=== PATIENT | female | born 1955 | race Hispanic/Latino ===

== ENCOUNTER 2016-09-19 09:32 | Outpatient (CLI) | payer OTHER ==
--- NOTE | 2016-09-19 12:50 | Mammography Report ---
Bilateral digital screening mammogram with CAD. Comparison studies from July 2013 and June 2012. Findings: The breasts have a fibrofatty appearance. Scattered bilateral calcifications have benign features. A small nodular asymmetry in the left breast at 12:00 has been present dating back to 2010 and demonstrates no suspicious features although it is slightly larger. No architectural distortion or other suspicious findings. Impression: Stable benign findings. BI-RADS code: 2. Recommendation: Annual screening.
--- NOTE | 2016-09-20 09:53 | Mammography Report ---
BONE DENSITY STUDY: DEFINITIONS: BMD = Bone Mineral Density T-score = BMD related to mean peak bone mass of young adult (mean expressed in Standard Deviation) Z-score = Age matched BMD expressed in SD World Health Organization (WHO) Diagnostic Criteria Normal T-score > -1 SD Osteopenia T-score between -1 and -2.4 SD Osteoporosis T-score -2.5 SD or below FINDINGS: The weighted average BMD of lumbar spine L1-L4 is 1.121 with a T-score of 0.7. The weighted average BMD of the left hip is 0.952 with a T-score of 0.1. IMPRESSION: The patient's average T-score is diagnostic for normal bone density and low relative risk for fracture. NOTE: BMD is not the only risk factor for fracture; also consider factors such as the patient's age, risk of falling, previous osteoporotic fracture, family history of osteoporotic fractures, current smoker, and low body weight. Romero's triangle is a region of interest in femur, predominantly of trabecular bone. It is not a true anatomic site, and [facility] does not recommend its use clinically.
== END 2016-09-19 09:33 | disposition home or self-care (01) ==
LOC: SPVWC 09:32
PROVIDERS: ATTEND Obstetrics & Gynecology
DX: Z12.31 Encounter for screening mammogram for malignant neoplasm of breast (principal); Z13.820 Encounter for screening for osteoporosis
CPT/HCPCS: 77080; G0202; 77067